=== PATIENT | male | born 1970 | race Hispanic/Latino ===

== ENCOUNTER 2020-08-29 18:45 | Emergency (ER) | payer SELFPAY ==
[2020-08-29 20:04] LABS: Bilirubin Negative (Negative); Blood, Urine Negative (Negative); Clarity Clear (Clear); Glucose, Urine (Dipstick) Negative (Negative); Ketone, Urine Negative (Negative); Leukocyte Negative (Negative); Nitrite Negative (Negative); Protein, Urine (Dipstick) Negative (Neg-Trace); Urobilinogen 0.2 mg/dL (Less than 2)
== END 2020-08-29 20:41 | disposition home or self-care (01) ==
LOC: NAV ERS 18:45
DX: N47.1 Phimosis (principal); I10 Essential (primary) hypertension
CPT/HCPCS: 81003; 99283